=== PATIENT | male | born 1985 | race Caucasian/White ===

== ENCOUNTER 2017-10-22 08:22 | Emergency (ER) | payer SELFPAY ==
--- NOTE | 2017-10-22 08:42 | PDOC ---
History of Present Illness - General Chief Complaint: Toothache Stated Complaint: TOOTHACHE Time Seen by Provider: 10/22/17 08:30 History Source: Patient Exam Limitations: No Limitations - History of Present Illness Initial Comments: 10/22/17 08:56 32-year-old male no past medical history here today complaining of left lower dental pain near the molars. Patient states he's had dental pain for 2 weeks he states that he had some dental carry now believes he has a hole running through the middle of the tooth. Denies any facial swelling no fevers chills no other complaints no difficulty with jaw motion or swallowing. Patient has been taking Tylenol with minimal relief Past History - Past Medical History Allergies/Adverse Reactions: Allergies Allergy/AdvReac Type Severity Reaction Status Date / Time No Known Allergies Allergy Verified 10/22/17 08:23 Home Medications: Ambulatory Orders Ibuprofen [Motrin -] 600 mg PO TID PRN #90 tablet MDD 3 10/22/17 COPD: No Other medical history: pt denies - Suicide/Smoking/Psychosocial Hx Smoking History: Never smoked Information on smoking cessation initiated: No Hx Alcohol Use: No Drug/Substance Use Hx: No Substance Use Type: None Review of Systems - Review of Systems Constitutional: No: Chills, Diaphoresis HEENTM: Yes: Dental Problems Respiratory: No: Cough, Orthopnea Cardiac (ROS): No: Chest Pain All Other Systems: Reviewed and Negative *Physical Exam - Vital Signs Last Vital Signs Temp Pulse Resp BP Pulse Ox 97.8 F 65 18 130/85 100 10/22/17 08:23 10/22/17 08:23 10/22/17 08:23 10/22/17 08:23 10/22/17 08:23 - Physical Exam General Appearance: Yes: Appropriately Dressed HEENT: positive: Normal Voice, Other (left lower posterior molar with caries and decay . no gum swelling, no trismux. uvula midline. ). negative: Tonsillar Exudate, Tonsillar Erythema Neck: positive: Trachea midline Respiratory/Chest: positive: Lungs Clear, Normal Breath Sounds Cardiovascular: positive: Regular Rhythm, Regular Rate, S1, S2. negative: Edema , JVD Neurologic: positive: Fully Oriented, Alert, Normal Mood/Affect, Other (gait normal) Medical Decision Making - Medical Decision Making 10/22/17 09:00 pt with dental caries and decay. no sign of abscess. given referral for dental urgent care. in addition rx for motrin 600 mg. dc home. *DC/Admit/Observation/Transfer Diagnosis at time of Disposition: Dental caries - Discharge Dispostion Disposition: HOME Condition at time of disposition: Stable Admit: No - Prescriptions Prescriptions: Ibuprofen [Motrin -] 600 mg PO TID PRN #90 tablet MDD 3 PRN Reason: Pain - Referrals - Patient Instructions Printed Discharge Instructions: DI for Tooth Decay, DI for Dental Pain Additional Instructions: you can take ibuprofen 600 mg every 8 hrs as needed for pain. follow up with dental care at dentist or at the dental urgent care. [phone]. return for any facial swelling. fever or any concerns. - Post Discharge Activity
[2017-10-22 08:45] VITALS: BP 130/85; PULSE 65; TEMP 97.8; BMI 25.1
== END 2017-10-22 08:45 | disposition home or self-care (01) ==
LOC: FER 08:22
DX: K02.9 Dental caries, unspecified (principal)
CPT/HCPCS: 99282-25